=== PATIENT | male | born 1950 | race Caucasian/White ===

== ENCOUNTER 2023-02-16 17:02 | Inpatient (IN) | payer OTHER, MEDICAID ==
[~2023-02-16] VITALS: Ht 165.1 cm; Wt 71.2 kg
[2023-02-16 17:14] VITALS: BP_SYST 118; PULSE 50; RESP 17; TEMP 97.9; O2SAT 95
[2023-02-16 17:58] LABS: BASOPHILS # (AUTO) 0.1 K/uL (0.0-0.2); BASOPHILS % (AUTO) 0.9 % (0.0-2.0); EOSINOPHILS # (AUTO) 0.4 K/uL (0.0-0.4); EOSINOPHILS % (AUTO) 3.8 % (0.0-4.0); HEMATOCRIT 37.6 % (36-54); HEMOGLOBIN 11.8 g/dL (14.0-18.0); LYMPHOCYTES # (AUTO) 2.3 K/uL (1.0-5.5); LYMPHOCYTES % (AUTO) 20.5 % (20.5-51.5); MEAN CORPUSCULAR HEMOGLOBIN 28 pg (27-31); MEAN CORPUSCULAR HGB CONC 31 % (32-36); MEAN CORPUSCULAR VOLUME 90 fL (79.0-98.0); MONOCYTES % (AUTO) 9.2 % (1.7-9.3); NEUTROPHILS # (AUTO) 7.2 K/uL (1.8-7.7); NEUTROPHILS % (AUTO) 65.6 % (40.0-70.0); PLATELET COUNT (AUTO) 314 K/uL (130-430)
[2023-02-16 18:09] LABS: ANION GAP 13 (5-15); CALCIUM 8.5 mg/dL (8.4-11.0); CARBON DIOXIDE 19 mmol/L (23-29); CHLORIDE 107 mmol/L (98-107); CREATININE 1.27 mg/dL (0.55-1.30); GLUCOSE 76 mg/dL (74-106); POTASSIUM 4.2 mmol/L (3.5-5.1); SODIUM SERUM 139 mmol/L (136-145); UREA NITROGEN, BLOOD 36 mg/dL (8-21)
[2023-02-16 18:10] LABS: INR 0.9 (0.80-1.20); PROTHROMBIN TIME 9.7 SECS (9.5-12.5)
[2023-02-16 18:21] LABS: ALANINE AMINOTRANSFERASE 7 U/L (12-78); ALBUMIN 3.2 g/dL (3.4-4.8); ASPARTATE AMINOTRANSFERASE 8 U/L (10-37); CREATINE KINASE, TOTAL 28 U/L (39-308); PHOSPHORUS 3.3 mg/dL (2.7-4.5); THYROID STIMULATING HORMONE 4.03 uIu/mL (0.34-4.82); TOTAL BILIRUBIN 0.2 mg/dL (0.0-1.0); TOTAL PROTEIN, SERUM 6.8 g/dL (6.4-8.3)
[2023-02-16] MEDS ORDERED: NACL 0.9% 2,000 ML IV ONE (18:30)
[2023-02-16] MEDS ORDERED: LEVE250T6 PO (18:45)
[2023-02-16] MEDS ORDERED: METF-381 PO (18:45)
[2023-02-16] MEDS ORDERED: DIVA-72 PO (18:45)
[2023-02-16] MEDS ORDERED: VERA240T93 PO (18:45)
[2023-02-16] MEDS ORDERED: FINA5TAB11 PO (18:45)
[2023-02-16] MEDS ORDERED: LISI40TA13 PO (18:45)
[2023-02-16] MEDS ORDERED: CLOP75TA32 PO (18:45)
[2023-02-16] MEDS ORDERED: ACET500C48 PO (18:45)
[2023-02-16] MEDS ORDERED: INSU100I26 SUBCUT (18:45)
[2023-02-16] MEDS ORDERED: AMLO10TA88 PO (18:45)
[2023-02-16] MEDS ORDERED: INSU100I4 SUBCUT (18:45)
[2023-02-16] MEDS ORDERED: CLON0.1T PO (18:45)
[2023-02-16] MEDS ORDERED: HYDR100T25 PO (18:45)
[2023-02-16] MEDS ORDERED: ATOR40TA68 PO (18:45)
[2023-02-16] MEDS ORDERED: TERB250T90 PO (18:45)
[2023-02-16] MEDS ORDERED: POTA-197 PO (18:45)
[2023-02-16] MEDS ORDERED: INSU100I70 SUBCUT (18:45)
[2023-02-16 21:34] LABS: BILIRUBIN,URINE NEGATIVE (NEGATIVE); BLOOD, URINE NEGATIVE (NEGATIVE); CLARITY/URINE Clear (CLEAR); COLOR,URINE YELLOW (YELLOW); GLUCOSE,URINE NEGATIVE (NEGATIVE); KETONES,URINE NEGATIVE (NEGATIVE); LEUKOCYTE ESTERASE ,URINE NEGATIVE (NEGATIVE); NITRITE, URINE NEGATIVE (NEGATIVE); PH,URINE 6.5 (5.0-8.0); PROTEIN URINE 2+ (NEGATIVE); UROBILINOGEN,URINE 0.2 (0.2-1.0)
[2023-02-16 21:43] LABS: BACTERIA,URINE RARE /HPF (None Seen); MUCUS,URINE 1+ /LPF (None Seen); RBC,URINE 0-3 /HPF (0-3); WBC,URINE NONE SEEN /HPF (0-3)
[2023-02-16 23:36] VITALS: BP_SYST 157; PULSE 65; RESP 18; TEMP 97.6; O2SAT 97
[2023-02-17] VITALS (7 sets, daily range): BP systolic 148–164; PULSE 63–74; RESP 17–19; TEMP 96.6–98.4; O2SAT 96–98
[2023-02-17] MEDS ORDERED: NACL 0.9% 1,000 ML IV SCH
[2023-02-17] MEDS ORDERED: DEXTROSE 50% JECT 50 ML DISP.SYRIN IVP PRN (01:15)
[2023-02-17] MEDS ORDERED: D5W 1,000 ML IV PRN (01:15)
[2023-02-17] MEDS ORDERED: GLUCOSE (DEXTROSE) ORAL GEL -Adults PO PRN (01:15)
[2023-02-17] MEDS ORDERED: DEXTROSE 50% JECT 50 ML DISP.SYRIN ONE (01:26)
[2023-02-17] MEDS: D5NS 1,000 ML IV SCH ×2 (02:16→20:42)
[2023-02-17] MEDS ORDERED: DIAMOX SEQUELS 500 MG CAPSULE.SA PO SCH ×2 (09:00→11:42)
[2023-02-17] MEDS ORDERED: TERbinafine HCL 250 MG TABLET(LamISIL) PO SCH (09:00)
[2023-02-17] MEDS: TERBINAFINE HCL 250 MG PO SCH (09:00)
[2023-02-17] MEDS ORDERED: TERBINAFINE HCL 250 MG PO SCH (09:00)
[2023-02-17] MEDS: ATORVASTATIN 20 MG TABLET PO SCH (11:13)
[2023-02-17] MEDS: POTASSIUM CHLORIDE 20 MEQ TAB.PRT.SR PO SCH ×2 (11:13→20:30)
[2023-02-17] MEDS: levETIRAcetam 500 MG TABLET PO SCH ×2 (11:13→20:30)
[2023-02-17] MEDS: DIVALPROEX SODIUM 250 MG TABLET(DEPAKOTE) PO SCH ×2 (11:13→20:30)
[2023-02-17] MEDS: CLOPIDOGREL BISULFATE 75 MG TABLET PO SCH (11:13)
[2023-02-17] MEDS: lisinopriL 20 MG TABLET PO SCH (11:14)
[2023-02-17] MEDS: FINASTERIDE 5 MG TABLET (PROSCAR) PO SCH (11:36)
[2023-02-17] MEDS ORDERED: DIAMOX SEQUELS 500 MG CAPSULE.SA PO ONE (11:45)
[2023-02-17] MEDS: INSULIN REGULAR, HUMAN 100 UNITS/ML, 3 ML VIAL (humuLIN R) SUBCUT PRN ×3 (12:27→23:41)
[2023-02-17 17:16] LABS: BASOPHILS # (AUTO) 0.1 K/uL (0.0-0.2); BASOPHILS % (AUTO) 1.2 % (0.0-2.0); EOSINOPHILS # (AUTO) 0.3 K/uL (0.0-0.4); EOSINOPHILS % (AUTO) 3.4 % (0.0-4.0); HEMATOCRIT 39.8 % (36-54); HEMOGLOBIN 12.3 g/dL (14.0-18.0); LYMPHOCYTES # (AUTO) 1.5 K/uL (1.0-5.5); LYMPHOCYTES % (AUTO) 17.4 % (20.5-51.5); MEAN CORPUSCULAR HEMOGLOBIN 28 pg (27-31); MEAN CORPUSCULAR HGB CONC 31 % (32-36); MEAN CORPUSCULAR VOLUME 89 fL (79.0-98.0); MONOCYTES # (AUTO) 0.8 K/uL (0.0-1.0); MONOCYTES % (AUTO) 9.8 % (1.7-9.3); NEUTROPHILS # (AUTO) 5.9 K/uL (1.8-7.7); NEUTROPHILS % (AUTO) 68.2 % (40.0-70.0); PLATELET COUNT (AUTO) 290 K/uL (130-430); RED BLOOD CELL COUNT(AUTO) 4.45 MIL/uL (4.2-6.2); RED CELL DISTRIBUTION WIDTH 16.8 % (9.0-15.0); WHITE BLOOD COUNT (AUTO) 8.6 K/uL (4.8-10.8)
[2023-02-17 17:30] LABS: ANION GAP 10 (5-15); CARBON DIOXIDE 20 mmol/L (23-29); CHLORIDE 109 mmol/L (98-107); CREATININE 1.03 mg/dL (0.55-1.30); GLUCOSE 267 mg/dL (74-106); POTASSIUM 3.7 mmol/L (3.5-5.1); SODIUM SERUM 139 mmol/L (136-145); UREA NITROGEN, BLOOD 26 mg/dL (8-21)
[2023-02-17] MEDS ORDERED: ENOXAPARIN SODIUM 30 MG/0.3 ML SYRINGE SUBCUT SCH (21:00)
[2023-02-17] MEDS: hydrALAZINE HCL 25 MG TABLET PO SCH (21:00)
[2023-02-18] VITALS: BP_SYST 150; PULSE 65; RESP 18; TEMP 98.3; O2SAT 96
[2023-02-18] MEDS: D5NS 1,000 ML IV SCH (03:55)
[2023-02-18 08:00] VITALS: BP_SYST 179; PULSE 70; RESP 18; TEMP 97.7; O2SAT 98
[2023-02-18 08:41] LABS: BASOPHILS # (AUTO) 0.1 K/uL (0.0-0.2); BASOPHILS % (AUTO) 1.2 % (0.0-2.0); EOSINOPHILS # (AUTO) 0.4 K/uL (0.0-0.4); EOSINOPHILS % (AUTO) 4.3 % (0.0-4.0); HEMOGLOBIN 11.7 g/dL (14.0-18.0); LYMPHOCYTES # (AUTO) 1.8 K/uL (1.0-5.5); LYMPHOCYTES % (AUTO) 20.9 % (20.5-51.5); MEAN CORPUSCULAR HEMOGLOBIN 28 pg (27-31); MEAN CORPUSCULAR HGB CONC 32 % (32-36); MEAN CORPUSCULAR VOLUME 88 fL (79.0-98.0); MONOCYTES % (AUTO) 11.3 % (1.7-9.3); NEUTROPHILS # (AUTO) 5.4 K/uL (1.8-7.7); NEUTROPHILS % (AUTO) 62.3 % (40.0-70.0); PLATELET COUNT (AUTO) 276 K/uL (130-430); RED BLOOD CELL COUNT(AUTO) 4.19 MIL/uL (4.2-6.2); RED CELL DISTRIBUTION WIDTH 16.5 % (9.0-15.0); WHITE BLOOD COUNT (AUTO) 8.7 K/uL (4.8-10.8)
[2023-02-18 08:56] LABS: ANION GAP 10 (5-15); CALCIUM 8.1 mg/dL (8.4-11.0); CARBON DIOXIDE 21 mmol/L (23-29); CHLORIDE 109 mmol/L (98-107); CREATININE 0.92 mg/dL (0.55-1.30); GLUCOSE 125 mg/dL (74-106); SODIUM SERUM 140 mmol/L (136-145); UREA NITROGEN, BLOOD 23 mg/dL (8-21)
[2023-02-18] MEDS: TERBINAFINE HCL 250 MG PO SCH (09:00)
[2023-02-18] MEDS ORDERED: DIAMOX SEQUELS 500 MG CAPSULE.SA PO SCH (09:00)
[2023-02-18 09:11] LABS: POTASSIUM 2.8 mmol/L (3.5-5.1)
[2023-02-18] MEDS ORDERED: POTASSIUM CHLORIDE 20 MEQ TAB.PRT.SR PO ONE (09:45)
[2023-02-18] MEDS: hydrALAZINE HCL 25 MG TABLET PO SCH (09:53)
[2023-02-18] MEDS: levETIRAcetam 500 MG TABLET PO SCH (09:54)
[2023-02-18] MEDS: POTASSIUM CHLORIDE 20 MEQ TAB.PRT.SR PO SCH (09:54)
[2023-02-18] MEDS: DIVALPROEX SODIUM 250 MG TABLET(DEPAKOTE) PO SCH (09:54)
[2023-02-18] MEDS: CLOPIDOGREL BISULFATE 75 MG TABLET PO SCH (09:54)
[2023-02-18] MEDS: lisinopriL 20 MG TABLET PO SCH (09:55)
[2023-02-18] MEDS: FINASTERIDE 5 MG TABLET (PROSCAR) PO SCH (10:03)
[2023-02-18] MEDS: ATORVASTATIN 20 MG TABLET PO SCH (10:03)
[2023-02-18 12:28] VITALS: BP_SYST 160; PULSE 68; RESP 17; TEMP 97.9; O2SAT 97
[2023-02-18 16:23] VITALS: BP_SYST 158; PULSE 64; RESP 18; TEMP 97.8; O2SAT 98
[2023-02-18] MEDS: INSULIN REGULAR, HUMAN 100 UNITS/ML, 3 ML VIAL (humuLIN R) SUBCUT PRN (17:31)
[2023-02-18 17:55] VITALS: BP_SYST 158; PULSE 64; RESP 18; TEMP 97.8; O2SAT 98
== END 2023-02-18 20:20 | DRG 640 ==
LOC: SED 17:02 → STU 21:03
PROVIDERS: ADMIT Family Medicine; ATTEND Family Medicine
DX: E86.0 Dehydration (principal); G93.41 Metabolic encephalopathy; N17.9 Acute kidney failure, unspecified; E87.20 Acidosis, unspecified; E78.5 Hyperlipidemia, unspecified; I10 Essential (primary) hypertension; F03.90 Unspecified dementia, unspecified severity, without behavioral disturbance, psychotic disturbance, mood disturbance, and anxiety; E11.9 Type 2 diabetes mellitus without complications; Z86.73 Personal history of transient ischemic attack (TIA), and cerebral infarction without residual deficits
CPT/HCPCS: 36415; 70450-TC; 71045; 76376; 80048; 80053; 81000; 82140; 82550; 82962; 83605; 83735; 84100; 84443; 84484; 85025; 85610-TC; 85730-TC; 87040; 87081; 87086; 93005; 96360; 97530-GP; 99291; G0378; J1650